=== PATIENT | male | born 1995 | race Hispanic/Latino ===

== ENCOUNTER 2017-10-13 18:20 | Emergency (ER) | payer BC ==
[2017-10-13] MEDS ORDERED: NACL 0.9% 1000 ML 1,000 ML IV ONE ×4 (18:28→22:27)
[2017-10-13 18:51] LABS: Basophils # (Auto) 0.1 K/mm3 (0.0-0.1); Basophils % (Auto) 0.5 % (0.0-1.8); Eosinophils # (Auto) 0.1 K/mm3 (0.0-0.4); Eosinophils % (Auto) 0.5 % (0.0-4.3); Hematocrit 45.4 % (35.5-45.6); Hemoglobin 15.7 gm/dl (11.8-15.2); Lymphocytes # (Auto) 1.8 K/mm3 (1.2-5.4); Lymphocytes % (Auto) 12.6 % (13.4-35.0); Mean Corpuscular HGB Conc 35 % (32-34); Mean Corpuscular Hemoglobin 30 pg (28-32); Mean Corpuscular Volume 87 fl (84-94); Monocytes # (Auto) 1.8 K/mm3 (0.0-0.8); Monocytes % (Auto) 12.7 % (0.0-7.3); Platelet Count 411 K/mm3 (140-440); Red Cell Distribution Width 12.7 % (13.2-15.2)
[2017-10-13 19:08] LABS: Alanine Aminotransferase 13 units/L (7-56); Albumin 4.2 g/dL (3.9-5); BUN/Creatinine Ratio 19; Blood Urea Nitrogen 15 mg/dL (9-20); Calcium 9.5 mg/dL (8.4-10.2); Hemolysis Index 7
[2017-10-13] MEDS ORDERED: ZOFRAN IV ONE (19:56)
[2017-10-13] MEDS ORDERED: MORPHINE IV ONE (19:56)
--- NOTE | 2017-10-13 20:25 | Emergency Department Report ---
HPI - General Chief Complaint: Abdominal Pain Time Seen by Provider: 10/13/17 18:41 - HPI HPI: 21-year-old male presents to the emergency department, sent in by his general surgeon Dr. Lopez, for evaluation of his right lower quadrant abdominal pain. The patient had an appendectomy done on the of this month. He had jennifer removed a week ago. This past Wednesday, 5 days ago, his daughter accidentally fell into his abdomen right in the area where he had a surgery. He had some waxing and waning discomfort since that time and even had a normal follow-up with the surgeon, but today the pain increased and he was instructed to come to the emergency department for further evaluation. He is been having some intermittent chills, nausea without vomiting, diarrhea over the past few days as well. He has not taken anything for his symptoms prior to presentation today. ED Past Medical Hx - Past Medical History Previous Medical History?: No Hx Hypertension: No Hx Heart Attack/AMI: No Hx Congestive Heart Failure: No Hx Diabetes: No Hx Liver Disease: No Hx Renal Disease: No Hx Seizures: No Hx Asthma: No Hx COPD: No Hx HIV: No - Surgical History Hx Appendectomy: Yes - Social History Smoking Status: Former Smoker Substance Use Type: None - Medications Home Medications: Home Medications Medication Instructions Recorded Confirmed Last Taken Type HYDROcodone/ACETAMINOPHEN [[place] 1 each PO Q8H PRN #10 tablet 10/14/17 Unknown Rx 5-325 Tablet] Vancomycin HCl [Vancocin HCl] 250 mg PO Q6H #40 capsule 10/14/17 Unknown Rx ED Review of Systems ROS: Stated complaint: PAIN IN [place] Other details as noted in HPI Comment: All other systems reviewed and negative Constitutional: chills. denies: fever Eyes: denies: eye pain, eye discharge, vision change ENT: denies: ear pain, throat pain Respiratory: denies: cough, shortness of breath, wheezing Cardiovascular: denies: chest pain, palpitations Gastrointestinal: abdominal pain, nausea, diarrhea. denies: vomiting Genitourinary: denies: urgency, dysuria Musculoskeletal: denies: back pain, joint swelling, arthralgia Skin: denies: rash, lesions Neurological: denies: headache, weakness, paresthesias Physical Exam - Physical Exam Vital Signs: Vital Signs 10/13/17 18:21 Temperature 98 F Pulse Rate 92 H Respiratory 18 Rate Blood Pressure 123/72 O2 Sat by Pulse 96 Oximetry Physical Exam: GENERAL: The patient is well-developed well-nourished. HENT: Normocephalic. Atraumatic. Patient has moist mucous membranes. EYES: Extraocular motions are intact. Pupils equal reactive to light bilaterally. NECK: Supple. Trachea is midline. CHEST/LUNGS: Clear to auscultation. There is no respiratory distress noted. HEART/CARDIOVASCULAR: Regular. There is no tachycardia. There is no murmur. ABDOMEN: Abdomen is soft. There is some right lower quadrant tenderness to palpation. No guarding. Patient has normal bowel sounds. There is no abdominal distention. SKIN: Skin is warm and dry. NEURO: The patient is awake, alert, and oriented. The patient is cooperative. The patient has no focal neurologic deficits. The patient has normal speech. MUSCULOSKELETAL: There is no tenderness or deformity. There is no limitation range of motion. There is no evidence of acute injury. ED Course Vital Signs 10/13/17 18:21 Temperature 98 F Pulse Rate 92 H Respiratory 18 Rate Blood Pressure 123/72 O2 Sat by Pulse 96 Oximetry - Consultations Consultation #1: 10/14/17 02:37 I had previously spoken to Dr. Lopez prior to this patient's arrival and obtained the labs and imaging requested. I once again spoke with him after the CT results came back. Dr. Lopez suggested that the patient may be dehydrated and recommended giving a total of 3 L of IV fluid. He requested that, if possible, stool samples get sent for a C. difficile assay. He then recommended , if the patient is feeling better and stable for discharge home, that the patient get started on vancomycin 250 mg for empiric treatment of C. difficile. ED Medical Decision Making - Lab Data Result diagrams: 10/13/17 18:29 10/13/17 18:29 - Radiology Data Radiology results: report reviewed PROCEDURE: CT ABDOMEN PELVIS W CON TECHNIQUE: Computerized axial tomography of the abdomen and pelvis was performed after the IV injection of iodinated nonionic contrast. HISTORY: lower abd pain after appy and then trauma to abd COMPARISON: No prior studies are available for comparison. FINDINGS: Liver, spleen, and adrenal glands are within normal limits. Bilateral kidneys demonstrate uniform enhancement without hydronephrosis. Urinary bladder is partially filled with normal outlines. Aorta is of normal caliber. Mild degree free fluid is noted in the peritoneal cavity. There is no free air. Gallbladder is unremarkable. There is mild degree dilatation of distal ileal loops. Moderate degree circumferential thickening is noted involving the terminal ileum. There is also moderate degree thickening of the cecal motley. Remaining large bowel is unremarkable. IMPRESSION: Interval development of thickening of the terminal ileum and cecum may represent an infectious/inflammatory process. There is no evidence of any fluid collection to suggest an abscess. Mild degree dilatation of distal ileal loops most likely represent an underlying partial obstructive component. Mild degree ascites. Transcribed By: [facility] [place] Dictated By: HAILE HINKLE Electronically Authenticated By: HAILE HINKLE Signed Date/Time: 10/13/172201 - Medical Decision Making This patient presents with some right lower quadrant abdominal pain, nausea, chills, diarrhea after having an appendectomy 2 weeks ago and then having his daughter accidentally fall into his abdomen around the surgical site. The patient's vital signs were stable throughout his ED course today including being afebrile. Labs are mostly unremarkable except for a mild leukocytosis of 14,000 without any significant neutrophilia or bandemia and his urinalysis shows some dehydration with concentrated urine but no ketones. Patient was given multiple liters of IV fluid resuscitation, pain and nausea medication. The CT scan shows some area of the terminal ileus and/or cecum that could be infectious or inflammatory. As per the consultation section, I spoke with Dr. Lopez, and the patient is feeling somewhat improved and asking for discharge home. He does appear stable at this time and will be discharged home with the vancomycin prescription as well as a pain prescription. Patient will most likely receive a call from Dr. Lopez's office but if not they have been instructed to call regarding follow-up. Patient has also been instructed to return to the emergency Department with any worsening of symptoms or any acute distress. - Differential Diagnosis colitis, postop pain, C. difficile, diverticulitis Critical Care Time: No Critical care attestation.: If time is entered above; I have spent that time in minutes in the direct care of this critically ill patient, excluding procedure time. ED Disposition Clinical Impression: Dehydration, Inflammation of small intestine Abdominal pain Qualifiers: Abdominal location: right lower quadrant Qualified Code(s): R10.31 - Right lower quadrant pain Diarrhea Qualifiers: Diarrhea type: unspecified type Qualified Code(s): R19.7 - Diarrhea, unspecified Disposition: DC-01 TO HOME OR SELFCARE Is pt being admited?: No Condition: Stable Instructions: Vancomycin (By mouth), Dehydration (ED), Acute Diarrhea (ED), Abdominal Pain (ED) Additional Instructions: You will most likely receive a call from Dr. Lopez's office tomorrow but if not I recommend giving them a call regarding follow-up and your emergency department visit. Return to the emergency Department with any worsening of your symptoms or with any acute distress. Take the antibiotics as prescribed. Increase your oral rehydration. You have been prescribed a medication that is sedating and therefore should not be taken prior to driving, working, and responsible for children and in no way should be mixed with alcohol of any quantity. Prescriptions: HYDROcodone/ACETAMINOPHEN [[place] 5-325 Tablet] 1 each PO Q8H PRN #10 tablet PRN Reason: Pain , Severe (7-10) Vancomycin HCl [Vancocin HCl] 250 mg PO Q6H #40 capsule Referrals: JOHNSON LOPEZ MD [Staff Physician] - [facility] Time of Disposition: 02:11
[2017-10-13] MEDS ORDERED: NACL 0.9% 50 ML ONE (21:26)
--- NOTE | 2017-10-13 22:04 | Cat Scan Report ---
FINAL REPORT PROCEDURE: CT ABDOMEN PELVIS W CON TECHNIQUE: Computerized axial tomography of the abdomen and pelvis was performed after the IV injection of iodinated nonionic contrast. HISTORY: lower abd pain after appy and then trauma to abd COMPARISON: No prior studies are available for comparison. FINDINGS: Liver, spleen, and adrenal glands are within normal limits. Bilateral kidneys demonstrate uniform enhancement without hydronephrosis. Urinary bladder is partially filled with normal outlines. Aorta is of normal caliber. Mild degree free fluid is noted in the peritoneal cavity. There is no free air. Gallbladder is unremarkable. There is mild degree dilatation of distal ileal loops. Moderate degree circumferential thickening is noted involving the terminal ileum. There is also moderate degree thickening of the cecal motley. Remaining large bowel is unremarkable. IMPRESSION: Interval development of thickening of the terminal ileum and cecum may represent an infectious/inflammatory process. There is no evidence of any fluid collection to suggest an abscess. Mild degree dilatation of distal ileal loops most likely represent an underlying partial obstructive component. Mild degree ascites.
[2017-10-14] MEDS ORDERED: VANCOMYCIN PO PO ONE (00:25)
[2017-10-14 01:22] LABS: Bilirubin,Urine NEG (Negative); Blood,Urine NEG (Negative); Color,Urine Yellow (Yellow); Mucus,Urine FEW /HPF; Protein,Urine <15 mg/dL mg/dL (Negative); WBC,Urine < 1.0 /HPF (0.0-6.0)
[2017-10-14 03:59] VITALS: BP 103/56
== END 2017-10-14 03:36 | disposition home or self-care (01) ==
LOC: ED 18:20
DX: E86.0 Dehydration (principal); K52.9 Noninfective gastroenteritis and colitis, unspecified; Z90.49 Acquired absence of other specified parts of digestive tract; Z87.891 Personal history of nicotine dependence
CPT/HCPCS: 36415; 74177; 80053; 81001; 85025; 96361; 96374; 96375; 99284; J2270; J2405; J3370; J7030; Q9967